=== PATIENT | female | born 1930 | race Caucasian/White ===

== ENCOUNTER → 2017-01-08 | Outpatient (CLI) | payer MEDICARE, OTHER ==
[~2017-01-08] MED LIST: COD LIVER OIL1 EACH PO; LEVOTHROID(SYN75 MCG PO; NUCYNTA50 MG PO; OCUVITE SOFTGE1 EACH PO; VITAMIN C500 M1 PO; VITAMIN E400 UNI1 PO; ZOFRAN4 MG PO
== END | disposition disaster alternative care site (69) ==
LOC: GRAD 12:49
DX: K59.00 Constipation, unspecified (principal); R10.2 Pelvic and perineal pain; E04.9 Nontoxic goiter, unspecified; Z85.048 Personal history of other malignant neoplasm of rectum, rectosigmoid junction, and anus; Z98.890 Other specified postprocedural states

== ENCOUNTER → 2017-06-26 | Outpatient (CLI) | payer MEDICARE, OTHER | END | disposition disaster alternative care site (69) | LOC: GRAD 12:50 | DX: Z08 Encounter for follow-up examination after completed treatment for malignant neoplasm (principal); E03.9 Hypothyroidism, unspecified; E04.9 Nontoxic goiter, unspecified; Z85.048 Personal history of other malignant neoplasm of rectum, rectosigmoid junction, and anus; Z98.890 Other specified postprocedural states | CPT/HCPCS: Q9967 ==